=== PATIENT | female | born 1965 | race Caucasian/White ===

== ENCOUNTER 2016-10-21 17:34 | Emergency (ER) | payer MEDICARE ==
[2016-10-21 19:58] LABS: HEMOGLOBIN 12.3 gm/dl (12.3-15.3); RED BLOOD COUNT 3.69 M/UL (4.00-5.10); WHITE BLOOD COUNT 12.9 K/UL (4.5-11.0)
[2016-10-21 20:25] LABS: BUN/CREATININE RATIO 20 (0-10)
== END 2016-10-21 23:02 | disposition home or self-care (01) ==
LOC: ER1 17:34
PROVIDERS: Specialist/Technologist Athletic Trainer
DX: J18.9 Pneumonia, unspecified organism (principal); E87.6 Hypokalemia; F17.200 Nicotine dependence, unspecified, uncomplicated
CPT/HCPCS: 36415; 80053; 82550; 82553; 83605; 84484; 85025; 85379; 85610; 85730; 86850; 86900; 86901; 93005; 96374; 99284; J2405; J7030; J7050; Q9963

== ENCOUNTER → 2016-11-13 | Outpatient (CLI) | payer MEDICARE | LOC: HEART 5 14:03 | DX: J44.9 Chronic obstructive pulmonary disease, unspecified (principal) | CPT/HCPCS: 94010 ==